=== PATIENT | male | born 1995 | race Caucasian/White ===

== ENCOUNTER 2018-05-01 11:57 | Emergency (ER) | payer OTHER ==
--- NOTE | 2018-05-01 12:31 | EDPHY ---
H & P Time Seen by Provider: 05/01/18 12:15 HPI/ROS: CHIEF COMPLAINT: Vomiting HISTORY OF PRESENT ILLNESS: 23-year-old male presents to the emergency department with multiple episodes of vomiting since 2:00 a.m. This morning. The patient states that his roommates have been sick with GI illness and the patient has had multiple episodes of vomiting and diarrhea since early this morning. He has some mild diffuse abdominal cramping. No chest pain or difficulty breathing. No urinary symptoms. No back pain. No reported trauma. No URI symptoms. He has been trying to drink Gatorade but he cannot keep it down. REVIEW OF SYSTEMS: Constitutional: No fever, no chills. Eyes: No double or blurry vision. ENT: No sore throat. Respiratory: No cough, no shortness of breath. Cardiac: No chest pain. Gastrointestinal: Vomiting, diarrhea, abdominal cramping. Genitourinary: No dysuria. Musculoskeletal: No neck or back pain. Skin: No rashes. Neurological: No headache. Past Medical/Surgical History: Negative Social History: Single Smoking Status: Never smoked Physical Exam: General Appearance: Alert, no distress. No distress Eyes: Pupils equal and round. Extraocular motions are all intact. ENT: Mouth: Mucous membranes moist. Respiratory: No wheezing, rhonchi, or rales, lungs are clear to auscultation. Cardiovascular: Regular rate and rhythm. Gastrointestinal: Abdomen is soft. Mild diffuse tenderness with palpation. There is no masses, rebound or guarding noted. No CVA tenderness bilaterally. Neurological: Alert and oriented x 3, cranial nerves II through XII grossly intact Skin: Warm and dry, no rashes. Musculoskeletal: Nontender to palpate along the cervical, thoracic or lumbar spine. Neck is supple. Extremities: Full range of motion and no peripheral edema. Psychiatric: Patient is oriented X 3, there is no agitation. Constitutional: Initial Vital Signs Temperature (C) 36.8 C 05/01/18 12:00 Heart Rate 124 H 05/01/18 12:00 Respiratory Rate 16 05/01/18 12:00 Blood Pressure 113/99 H 05/01/18 12:00 O2 Sat (%) 97 05/01/18 12:00 O2 Delivery Mode Room Air Allergies/Adverse Reactions: No Known Allergies Allergy (Unverified 05/01/18 12:00) Home Medications: Medication Instructions Recorded NK [No Known Home Meds] 05/01/18 Medical Decision Making ED Course/Re-evaluation: 23-year-old male presents to the emergency department with multiple episodes of vomiting and diarrhea. Roommates at home had similar symptoms. Patient had an IV established and was given 2 L of IV normal saline. He was feeling much better. He was monitored for nearly 3 hr in the emergency department had no recurring episodes of vomiting. He is now drinking some Gatorade and feels comfortable being discharged home. Abdomen is soft and nontender. I do not think imaging studies are indicated. He feels comfortable being discharged home. Differential Diagnosis: Including but not limited to gastroenteritis, gastritis, dehydration, infectious diarrhea, acute appendicitis, dehydration, electrolyte abnormality - Data Points Medications Given: Discontinued Medications Sodium Chloride (Ns) 1,000 mls @ 0 mls/hr IV EDNOW ONE; Wide Open PRN Reason: Protocol Stop: 05/01/18 12:36 Last Admin: 05/01/18 12:41 Dose: 1,000 mls Sodium Chloride (Ns) 1,000 mls @ 0 mls/hr IV EDNOW ONE; Wide Open PRN Reason: Protocol Stop: 05/01/18 14:05 Last Admin: 05/01/18 14:05 Dose: 1,000 mls Departure - Departure Disposition: Home, Routine, Self-Care Clinical Impression: Gastroenteritis Condition: Good Instructions: Gastroenteritis (ED) Additional Instructions: Clear liquids and slowly advance diet as tolerated. Abdominal Pain: Return to the Emergency Department immediately for increasing pain, fever, vomiting, or if not completely better in 8-12 hours. Referrals: Donita Barlow DO [Doctor of Osteopathy] - 1 day, if not improved (Primary care provider qa automation architect)
[2018-05-01] MEDS ORDERED: NS 1,000 ML IV ONE ×2 (12:35→14:04)
[2018-05-01 15:08] VITALS: BP 110/66
== END 2018-05-01 15:08 | disposition home or self-care (01) ==
DX: K52.9 Noninfective gastroenteritis and colitis, unspecified (principal); E86.9 Volume depletion, unspecified